=== PATIENT | male | born 1995 | race Caucasian/White ===

== ENCOUNTER 2016-09-18 03:22 | Inpatient (IN) | payer OTHER ==
[~2016-09-18] VITALS: Ht 182.9 cm; Wt 86.4 kg
[~2016-09-18 03:22] MED LIST: AUGMENTIN 875 M1 TAB PO; FIORICET 325 MG1 TAB PO; PROTONIX 40MG T40 MG PO; ZOFRAN ODT4 MG PO
--- NOTE | 2016-09-18 03:34 | NUR ---
PT BIBA FOR +SI. PT REPORTS THOUGHTS OF SI TONIGHT AND THEN WENT TO A BRIDGE TO JUMP OFF BEFORE BEING TALKED DOWN BY FRIENDS. ARRIVES CALM AND COOPERATIVE. PT DENIES HI OR ALCOHOL USE. ADMITS TO SMOKING MARIJUANA. PT HAS HX: BIPOLAR AND IMPULSE DISORDER, ADMITS TO FAILING IOP FROM NOT GOING AND HAS SINCE BEEN NONCOMPLIANT WITH MEDICATIONS. PT WANDED BY SECURITY ON ARRIVAL AND CHANGED INTO BLUE SCRUBS
--- NOTE | 2016-09-18 03:52 | NUR ---
AT BEDSIDE TO ROCÍO
--- NOTE | 2016-09-18 03:52 | NUR ---
URINE TRIO SENT TO LAB
--- NOTE | 2016-09-18 04:01 | ED PSYCHIATRIC COMPLAINT ---
History of Present Illness General Chief Complaint: Psychiatric Related Complaint Stated Complaint: BIBA FOR +SI Source: patient Exam Limitations: no limitations Vital Signs & Intake/Output Vital Signs & Intake/Output Vital Signs Date Time Temp Pulse Resp B/P B/P Pulse O2 O2 Flow FiO2 Mean Ox Delivery Rate 09/18 0926 98.8 60 18 129/69 96 Room Air 09/18 0729 98.1 61 18 122/71 99 Room Air 09/18 0621 97.8 58 16 119/54 98 Room Air 09/18 0414 Room Air 09/18 0324 97.6 74 20 159/89 97 Room Air Allergies Uncoded Allergies: SALMON (Intermediate, HIVES 06/03/15) Reconcile Medications Acetaminophen/Butalbital/Caf (Fioricet 325 MG-50 MG-40 MG) 1 TAB TAB 1-2 TAB PO Q6P PRN PAIN AMOXICILLIN/POTASSIUM CLAV (Augmentin 875-125 Tablet) 875 MG/125 MG TAB 1 TAB PO BID SINUSITIS Triage Note: PT BIBA FOR +SI. PT REPORTS THOUGHTS OF SI TONIGHT AND THEN WENT TO A BRIDGE TO JUMP OFF BEFORE BEING TALKED DOWN BY FRIENDS. ARRIVES CALM AND COOPERATIVE. PT DENIES HI OR ALCOHOL USE. ADMITS TO SMOKING MARIJUANA. PT HAS HX: BIPOLAR AND IMPULSE DISORDER, ADMITS TO FAILING IOP FROM NOT GOING AND HAS SINCE BEEN NONCOMPLIANT WITH MEDICATIONS. PT WANDED BY SECURITY ON ARRIVAL AND CHANGED INTO BLUE SCRUBS/ Triage Nurses Notes Reviewed? yes HPI: Patient presents for evaluation of bipolar disorder and suicide ideation. Patient feels he needs to get back on his medications. He was being seen at the IOP program but obtained a job and didn't quite complete the course. Because he was no longer being seen he was unable to continue his medications. He states recently he has been under increasing stress, in particular, relative to his girlfriend's children. Apparently DCF became involved because of his past psychiatric history. He states he has been feeling extremely guilty about it. Tonight he began having thoughts of suicide. He group chatted and the members of the group called 911 at his request. (NUHA KEITH,TOMMIE Gardiner) Past History Travel History Traveled to [place] past 21 day No Medical History Any Pertinent Medical History? 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 No (TOMMIE BREEN MD) Review of Systems Review of Systems Constitutional: Reports: no symptoms. EENTM: Reports: no symptoms. Respiratory: Reports: no symptoms. Cardiovascular: Reports: no symptoms. GI: Reports: no symptoms. Genitourinary: Reports: no symptoms. Musculoskeletal: Reports: no symptoms. Skin: Reports: no symptoms. Neurological/Psychological: Reports: see HPI. Hematologic/Endocrine: Reports: no symptoms. Immunologic/Allergic: Reports: no symptoms. All Other Systems: Reviewed and Negative (NUHA KEITH,TOMMIE Gardiner) Physical Exam Physical Exam General Appearance: SEE BELOW Neurological/Psychiatric: SEE BELOW Comments: General: Alert, calm, cooperative Head: Normocephalic, atraumatic Eyes: Normal inspection, no nystagmus, EOMI Ears: Normal inspection Nose: Normal inspection Throat: Moist mucosa Neck: Supple, no goiter Heart: Regular rate and rhythm, no murmurs rubs or gallops Lungs: Clear to auscultation bilaterally with good air entry Abdomen: Soft nontender nondistended, normal bowel sounds Chest: Nontender Extremities: Normal range of motion grossly, no tremors present, no cyanosis clubbing or edema of the upper extremities, multiple parallel scars of the left upper extremity (patient states they were self administered) Neurologic: cranial nerves II through XII grossly intact, speech clear, gait normal Psychiatric: No apparent delusions or hallucinations, no pressured speech or thought blocking SAD PERSONS Done? deferred to crisis (NUHA KEITH,TOMMIE Gardiner) Progress Differential Diagnosis: SUICIDE IDEATION, DEPRESSION, BIPOLAR DISORDER Plan of Care: Orders Procedure Date/time Status ETHANOL 09/19 407 Complete Continuous Observation Monitor 09/19 399 Active CBC WITHOUT DIFFERENTIAL 09/19 399 Complete BASIC METABOLIC PANEL 09/19 399 Complete ED CRISIS PSYCH CONSULT 09/19 399 Active URINE DRUGS OF ABUSE 09/18 034 Complete URINALYSIS 09/19 343 Complete Laboratory Tests 09/18/16 0408: Anion Gap 10, Estimated GFR > 60, BUN/Creatinine Ratio 14.0, Glucose 92, Calcium 9.5, CBC w Diff NO MAN DIFF REQ, RBC 5.04, MCV 86.2, MCH 29.4, RDW 13.0, MPV 7.4 , Gran % 68.6, Lymphocytes % 22.1, Monocytes % 7.4, Eosinophils % 1.5, Basophils % 0.4, Absolute Granulocytes 5.3, Absolute Lymphocytes 1.7, Absolute Monocytes 0.6, Absolute Eosinophils 0.1, Absolute Basophils 0, PUBS MCHC 34.1, Serum Alcohol < 10.0 09/18/16 0359: Serum Alcohol Cancelled 09/18/16 0346: Urine Opiates Screen < 100.00, Methadone Screen < 40, Barbiturate Screen < 60, Ur Phencyclidine Scrn < 6.00, Amphetamines Screen < 100, U Benzodiazepines Scrn < 85, Urine Cocaine Screen > 1000 H, Urine Cannabis Screen 54.50 H, Urine Color YEL, Urine Clarity CLEAR, Urine pH 6.5, Ur Specific [place] 1.015, Urine Protein NEG, Urine Ketones NEG, Urine Nitrite NEG, Urine Bilirubin NEG, Urine Urobilinogen 1.0, Ur Leukocyte Esterase NEG, Ur Microscopic EXAM NOT REQUIRED, Urine Hemoglobin NEG, Urine Glucose NEG Comments: 09/18/2016 7:48:18 AM patient signed out to 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 (NUHA KEITH,TOMMIE Gardiner) Comments: Patient has been seen and evaluated by a private duty lpn. PEC is being signed. Patient will be admitted. (ANTHONY KEITH,ROSAMARIA Ambrocio) Departure Departure Referrals: PATIENT HAS NO PRIMARY CARE DR (PCP/Family) Departure Forms: Customer Survey General Discharge Information (TOMMIE BREEN MD) Departure Disposition: STILL A PATIENT Condition: Guarded Clinical Impression Primary Impression: Suicidal ideations Psych Admission Note Psychiatric Admission: I have seen and evaluated VAZQUEZ YUEN. I have also reviewed all the pertinent lab results and diagnostic results. VAZQUEZ YUEN will be admitted to our inpatient Psychiatric unit for treatment and care. (ANTHONY KEITH,ROSAMARIA Ambrocio)
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
--- NOTE | 2016-09-18 04:11 | NUR ---
LABS SENT (1SST,1LAV)
[2016-09-18 04:18] LABS: ABSOLUTE BASOPHIL COUNT 0 /CUMM (0.0-0.2); ABSOLUTE EOSINOPHIL COUNT 0.1 /CUMM (0.0-0.7); ABSOLUTE GRANULOCYTE CT 5.3 /CUMM (1.4-6.5); ABSOLUTE LYMPH COUNT 1.7 /CUMM (1.2-3.4); ABSOLUTE MONOCYTE COUNT 0.6 /CUMM (0.10-0.60); BASOPHIL % 0.4 % (0.0-2.0); EOSINOPHIL % 1.5 % (0-5); GRANULOCYTE % 68.6 % (42.2-75.2); HEMATOCRIT 43.5 % (42-52); MEAN CORPUSCULAR HGB 29.4 PG (27.0-31.0); MEAN CORPUSCULAR HGB CONC 34.1 G/DL (33.0-37.0); MEAN CORPUSCULAR VOLUME 86.2 FL (80.0-94.0); MEAN PLATELET VOLUME 7.4 FL (7.4-10.4); PLATELET COUNT 296 /CUMM (130-400); RED BLOOD CELL CT 5.04 /CUMM (4.70-6.10); WHITE BLOOD CELL COUNT 7.7 /CUMM (4.8-10.8)
--- NOTE | 2016-09-18 06:24 | NUR ---
PT REMAINS AWAKE, REPORTS WAS UNABLE TO SLEEP. AWARE OF PLAN TO BE EVALUATED BY CRISIS THIS MORNING. PT IN AGREEMENT WITH PLAN. CALM AND COOPERATIVE. PT REPORTS "I KNOW I NEED HELP SO I DON'T FEEL THIS WAY." DENIES ANY OTHER NEEDS AT THIS TIME.
--- NOTE | 2016-09-18 08:00 | NUR ---
PT SLEEPING QUIETLY, NO COMPLAINTS AT THIS TIME, AWAITING CRISIS EVAL
--- NOTE | 2016-09-18 09:14 | ED PSYCH CRISIS CONSULTATION ---
Crisis Consult Basic Assessment Date of Consult: 09/18/16 Responsible Person/Accompanied By: Self Insurance Authorization: Insurance #1: Insurance name: [employer] C&A Phone number: Policy number: [id number] Group number: Authorization number: ED Provider: Patient's ED Provider: TOMMIE BREEN MD Primary Care Physician: Patient's PCP: PATIENT HAS NO PRIMARY CARE DR PCP's Phone Number: Current Psychiatrist: None currently. Most recent Claudia Maravilla DO, at [facility] Chief Complaint: Psychiatric Related Complaint Patient's Quote: "Can't say I was suicidal, I never sent a note." Present Illness: 21 M BIBA 09/18/16 @ 0334 with CC of suicidal ideation. Triage note mentions plan to jump off bridge. Utox positive for cocaine and cannabis. He has a history of suicide attempts. He had been under stress because his girlfriend's children are now with her parents, and the girlfriend had wanted to separate for a while. The patient lives with his GF, Isabella, who works nights here at the hospital. Early this morning, the patient reports feeling overwhelmed by events, and told Isabella at work that, "I'm just gonna tell you goodbye." Isabella reports that he told her he left a letter for her, but she had not been home to find it yet. Collateral interview with Isabella, the GF with whom he has been living: Isabella' two boys, 4 and 9, had been living with her and the patient. Isabella' ex-, now in long term, and his parents have been trying to get custody of the children, and threatened to call DCF. Isabella denies DCF is involved with the children, and they are currently living with her mother. She reports that she felt she was burdening the patient with the drama surrounding the children, and told the patient that they should separate for a time. The patient at some point turned his phone off, and stopped responding to text, after which she notified friends, who called minda. The friends found the patient in the [place] on [facility]. Isabella was present and supportive in the ED after she was finished with her work. Collateral interview with aDniel, father of the patient's friend, Abbey: He states that he lives in the house with the patient and Isabella, and denies that the patient mentioned a suicide plan, but they were worried about his intent last night. The patient denied writing a suicide note, and stated that he just went for a walk at 2AM. He offers an unclear story on what he said in phone calls and text, and denies planning to jump off a bridge. He states he ws found sitting on a bench in the park on [facility], where there is a ledge and bridge nearby. 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 Last heroin use was about a year ago by inhalation. He sporadically attends AA meetings, but has not sponsor. 08/08/10 - Previous suicide attempt by OD on meclizine; effected own rescue 07/22/10 - Suicide attempt by unknown number of unidentified pills; effected own rescue 08/11/14 - Suicide attempt in [place] by hanging (rope broke); effected own rescue 02/06/15 - Suicidal ideation with threat to hang himself 03/31/15 - Suicidal statement on Facebook; admitted to [facility] - [facility], followed by [facility], which he left one week before graduation, fearing his new job would not want him if he was in treatment. The patient had also followed with Dr. Maravilla, psychiatrist, at [facility] in [place], but had fallen out of treatment. He reports that he last saw her 1-1/2 months ago, but that office moved from the location in [place], where the patient was seen, last winter; he was unaware of this. Patient's Address: [address] [place] [address] Other Phone Number: Who Do You Live With? Friend (Lives with GF & her children) Family/Informants Interviewed: Girlfriend, Isabella, Allergies - Uncoded Allergies: SALMON (Intermediate, HIVES 06/03/15) Current Medications - Scheduled Medications AMOXICILLIN/POTASSIUM CLAV (Augmentin 875-125 Tablet) 875 MG/125 MG TAB 1 TAB PO BID SINUSITIS #20 TAB Prescribed by KEVIN HILLS PA-C on 06/03/15 Scheduled PRN Medications Acetaminophen/Butalbital/Caf (Fioricet 325 MG-50 MG-40 MG) 1 TAB TAB 1-2 TAB PO Q6P PRN PAIN #20 TAB Prescribed by KEVIN HILLS PA-C on 06/03/15 Laboratory Results: Laboratory Tests 09/18/16 0408: Anion Gap 10, Estimated GFR > 60, BUN/Creatinine Ratio 14.0, Glucose 92, Calcium 9.5, CBC w Diff NO MAN DIFF REQ, RBC 5.04, MCV 86.2, MCH 29.4, RDW 13.0, MPV 7.4 , Gran % 68.6, Lymphocytes % 22.1, Monocytes % 7.4, Eosinophils % 1.5, Basophils % 0.4, Absolute Granulocytes 5.3, Absolute Lymphocytes 1.7, Absolute Monocytes 0.6, Absolute Eosinophils 0.1, Absolute Basophils 0, PUBS MCHC 34.1, Serum Alcohol < 10.0 09/18/16 0359: Serum Alcohol Cancelled 09/18/16 0346: Urine Opiates Screen < 100.00, Methadone Screen < 40, Barbiturate Screen < 60, Ur Phencyclidine Scrn < 6.00, Amphetamines Screen < 100, U Benzodiazepines Scrn < 85, Urine Cocaine Screen > 1000 H, Urine Cannabis Screen 54.50 H, Urine Color YEL, Urine Clarity CLEAR, Urine pH 6.5, Ur Specific [place] 1.015, Urine Protein NEG, Urine Ketones NEG, Urine Nitrite NEG, Urine Bilirubin NEG, Urine Urobilinogen 1.0, Ur Leukocyte Esterase NEG, Ur Microscopic EXAM NOT REQUIRED, Urine Hemoglobin NEG, Urine Glucose NEG Past History Past Medical History Neurological: NONE EENT: NONE Cardiovascular: NONE Respiratory: NONE Gastrointestinal: NONE Hepatic: NONE Renal: NONE Musculoskeletal: NONE Psychiatric: bipolar disease, substance abuse, RECOVERING HEROIN ADDICT LAST USED 03/2015 Endocrine: NONE Blood Disorders: NONE Cancer(s): 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 Substance Abuse Treatment Substance Abuse Treatment Past Substance Abuse TX Yes Inpatient Treatment No Outpatient Treatment Yes Location of Treatment IOP Reason for Treatment Substance abuse and bipolar d/o Dates of Treatment 2016 Response to Treatment Improved Current Mental Status Mental Status Orientation: Person, Place, Situation Affect: WNL Speech: Evasive Neuro-vegetative: Anhedonia (Denies depression), Sleep Disturbance Appearance Appearance- Dress/Hygiene: Disheveled in hospital garb Behaviors Thought Process: Flight of Ideas, Circumstantial Thought Content: Grandiose Memory: Impaired Insight: Poor SI/HI Risk Assessment Past Suicidal Ideation/Attempts Yes Current Suicidal Ideation/Att No Past Homicidal Ideation/Att: Yes Current Homicidal Ideation/Attempts No Degree of Intent: Self Destructive/No , Thoughts/No Intent Danger To: Self Gravely Disabled: Lack of Insight, Poor Impulse Control, Poor Judgment Risk Factors: age (under 24/over 65), history of suicide atmpts, SA/MH hospitalized, substance abuse, poor impulse control, male, limited support Lethality Ratin PTSD Checklist PTSD Done? patient declined ED Management Sitter: Yes Restraints: No DSM5/PS Stressors/Medical Prob Diagnosis' (DSM 5, Stressors, Medical): F31.9 - Bipolar I, unspecified F14.20 - Cocaine use disorder F12.20 - Cannabis use disorder F11.20 - Heroin use disorder, in remission for one year, per patient Borderline traits, R/O borderline d/o Current GAF: 28 Departure Disposition Psych Medical Clearance Date: 09/18/16 Medically Cleared at: 0810 Time Started: 0810 Time Ended: 0840 Psychiatrist Consulted: Keturah Jiang MD Date Disposition Established: 09/18/16 Time Disposition Established: 929 Plan for Disposition - Modality: Inpatient Psychiatry Facility: [facility] Rationale for Disposition: the patient made suicidal statements by phone to his Chanel GRACE. He has a history of suicide attempts, with [facility]. The patient denies making suicidal statements, contrary to report by his Chanel GRACE. Type of IP Admission: PEC Additional Instructions: The girlfriend, Isabella, promises to bring in the letter the patient told her he left at home, if she finds it. The patient denied leaving a note. Referrals PATIENT HAS NO PRIMARY CARE DR (PCP/Family)
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
--- NOTE | 2016-09-18 11:03 | NUR ---
PER CRISIS PT IS TO BE ADMITTED FOR +SI, REQUESTING ATIVAN AND NICOTINE PATCH. AWARE.
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
--- NOTE | 2016-09-18 11:51 | NUR ---
PT MEDICATED WITH ATIVAN AND NICOTINE PATCH PER EMAR, FAMILY MEMBERS AT BEDSIDE, PT STATING HE IS UPSET HE HAS TO STAY BUT UNDERSTANDS AND UNDERSTANDS THE PROCESS
--- NOTE | 2016-09-18 12:20 | NUR ---
Care of patient assumed. Pt calm and waiting for placement. Offers no complaints. Girlfriend at the bedside. Will continue to monitor
[2016-09-18] MEDS ORDERED: ARIPIPRAZOLE5 M1 PO (12:34)
[2016-09-18] MEDS ORDERED: GABAPENTIN400 M2 PO (12:34)
--- NOTE | 2016-09-18 13:38 | NUR ---
REPORT GIVEN, WAITING FOR TRANSPORT.
--- NOTE | 2016-09-18 15:17 | Cons- Medical ---
General Information and HPI Consulting Request Date of Consult: 09/18/16 Requested By: RENATA MORRIS MD Reason for Consult: Medical H & P Source of Information: patient, old records Exam Limitations: no limitations History of Present Illness: 21 year old male with active polysubstance use including cocaine and cannabis use here with depressive c/o and suicidality. he denies any medical problems. 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 He denies chest pain, cough, sputum he denies any nausea, vomiting, diarrhea and any other complaints. He says that he's been free of heroin but snorted cocaine a few days ago. He is also still actively smoking cigarettes. Allergies/Medications Allergies: Coded Allergies: Fish Containing Products (Intermediate, SALMON -> HIVES 09/18/16) Home Med List: Aripiprazole 5 MG TABLET 1 TAB PO DAILY bipolar (Reported) Gabapentin 400 MG CAPSULE 1 CAP PO TID anxiety (Reported) Current Medications: Current Medications Sig/Isiah Start time Last Medication Dose Route Stop Time Status Admin Lorazepam 0 .STK-MED ONE 09/18 1137 DC PO Lorazepam 2 MG ONCE ONE 09/18 1130 DC 09/18 PO 09/18 1131 1135 Nicotine 0 .STK-MED ONE 09/18 1137 DC TOP Nicotine 21 MG ONCE ONE 09/18 1130 DC 09/18 TOP 09/18 1131 1135 Nicotine 2 MG Q2P PRN 09/18 1130 AC PO Review of Systems Review of Systems Constitutional: Denies: no symptoms, chills, diaphoresis, fever. Cardiovascular: Denies: no symptoms, chest pain, edema. Respiratory: Denies: no symptoms, cough, hemoptysis, orthopnea. GI: Denies: no symptoms, abdominal pain, constipation, diarrhea. 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 Home Who Do You Live With? spouse (he lives with his fianc) Smoking Status: Current Everyday Smoker ETOH Use: denies use Illicit Drug Use: marijuana Other Social History: Family history is negative for any cancer, diabetes stroke or heart disease. Functional Ability ADLs Independent: dressing, eating, toileting, bathing. IADLs Independent: shopping, housework, finances. Exam & Diagnostic Data Last 24 Hrs of Vital Signs/I&O Vital Signs Date Time Temp Pulse Resp B/P B/P Pulse O2 O2 Flow FiO2 Mean Ox Delivery Rate 09/18 1158 98.3 61 18 114/53 94 Room Air 09/18 0926 98.8 60 18 129/69 96 Room Air 09/18 0729 98.1 61 18 122/71 99 Room Air 09/18 0621 97.8 58 16 119/54 98 Room Air 09/18 0414 Room Air 09/18 0324 97.6 74 20 159/89 97 Room Air Intake & Output 09/18 1600 09/18 0800 09/18 0000 Intake Total Output Total 80 Balance -80 Output, Urine 80 Patient 190 lb 145 lb Weight Weight Estimated Measurement Method Physical Exam General Appearance: well developed/nourished, no apparent distress, alert, awake Head: atraumatic, normal appearance Ears, Nose, Throat: normal pharynx, normal ENT inspection Neck: supple, full range of motion Respiratory: normal breath sounds, chest non-tender, no respiratory distress Cardiovascular: regular rate/rhythm Gastrointestinal: normal bowel sounds, soft, non-tender, no organomegaly Back: normal inspection, normal range of motion Neurologic/Psych: no motor/sensory deficits, awake, alert, oriented x 3, normal gait Other Physical Findings: Cranial nerves 3-12 are intact, no motor or sensory deficit. He does have a tattoo on his skin. Last 24 Hrs of Labs/Ian: Laboratory Tests 09/18/16 0408: Anion Gap 10, Estimated GFR > 60, BUN/Creatinine Ratio 14.0, Glucose 92, Calcium 9.5, CBC w Diff NO MAN DIFF REQ, RBC 5.04, MCV 86.2, MCH 29.4, RDW 13.0, MPV 7.4 , Gran % 68.6, Lymphocytes % 22.1, Monocytes % 7.4, Eosinophils % 1.5, Basophils % 0.4, Absolute Granulocytes 5.3, Absolute Lymphocytes 1.7, Absolute Monocytes 0.6, Absolute Eosinophils 0.1, Absolute Basophils 0, PUBS MCHC 34.1, Serum Alcohol < 10.0 09/18/16 0359: Serum Alcohol Cancelled 09/18/16 0346: Urine Opiates Screen < 100.00, Methadone Screen < 40, Barbiturate Screen < 60, Ur Phencyclidine Scrn < 6.00, Amphetamines Screen < 100, U Benzodiazepines Scrn < 85, Urine Cocaine Screen > 1000 H, Urine Cannabis Screen 54.50 H, Urine Color YEL, Urine Clarity CLEAR, Urine pH 6.5, Ur Specific [place] 1.015, Urine Protein NEG, Urine Ketones NEG, Urine Nitrite NEG, Urine Bilirubin NEG, Urine Urobilinogen 1.0, Ur Leukocyte Esterase NEG, Ur Microscopic EXAM NOT REQUIRED, Urine Hemoglobin NEG, Urine Glucose NEG Assessment/Plan Assessment/Plan 21-year-old male with past medical history of opiate use now with active marijuana, cocaine and tobacco use here with depressive symptoms and suicidality. Treatment as per psych. I offered him HIV and hepatitis testing which he agreed to. I also reinforced with him the need to follow-up as an outpatient with the PCP at [address] [place] [address] in [place]. Problem List: 1. Major depression 2. Suicidal ideation 3. Cocaine use Consult Acknowledgment - Thank you for your consult request.
[2016-09-18 15:36] VITALS: BP 131/70
--- NOTE | 2016-09-18 17:26 | NUR ---
PT ADMITTED TO [facility], COOPERATIVE, CALM, COMPLIANT AND MOTIVATED FOR TREATMENT AND OPEN TO FEEDBACK THE TEAM HAS. MOOD IS STABLE WITH FULL RANGE AFFECT. RECALLS EVENTS LEADING UP TO ADMISSION POOR COPING AND RECOGNIZES SHOULD BE TAKING MEDICATIONS (HASN'T IN 6+ MONTHS), WANTS TO FEEL AND BE BETTER. PT IS PLEASANT AND HAS NO ISSUES OR CONCERNS. WHEN ASKED DIRECTLY DENIES SI/HI/HALLUCINATIONS AND FEELS COMFORTABLE AND SAFE ON UNIT WITH SOUTH STAFF. MEDS RECONCILED AND ALLERGIES CONFIRMED, PT IS THUS FAR APPROPRIATE AND ON THE UNIT OR LAYING IN BED. SKIN THAT IS VISIBLE IS CLEAN, DRY AND INTACT, DOES HAVE SEVERAL RANDOM SELF INFLICTED SCARS (ALL HEALDED) ON LEFT FOREARM & DENIES ANY OTHER ALTERATION TO SKIN THAT ISN'T VISIBLE. DR. AWAN NOTIFIED FOR H&P TODAY @ 8921.
--- NOTE | 2016-09-18 18:11 | NUR ---
PT IS CALM, COOPERATIVE WITH STAFF AND PEERS, AND COMPLIANT WITH UNIT RULES. BOTH IN AND OUT OF MILIEU, WITH LIMITED INTERACTION WITH PEERS. MOOD IS STABLE, AFFECT APPEARS EUTHMYIC TO FULL RANGE, COMMUNICATION IS ORGANIZED AND APPEARS NORMAL IN ALL RESPECTS, AND APPETITE IS NORMAL. PT DENIES SI AT THIS TIME.
[2016-09-18 19:50] VITALS: BP 136/73
--- NOTE | 2016-09-18 21:05 | CPS MD/APRN INITIAL ASSE PSYCH ---
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 The ambulance was called by the girlfriend as a result of the patient's suicidal statements. The patient wrote a suicide letter and told the girlfriend maylin then turned his phone off and left the house. The girlfriend was worried given the patient's past history of suicide attempts, she called the police, the patient was found sitting in his car close to a bridge. He allegedly stated that his intent was to jump off a bridge. While he was in the emergency room he denied any suicidal ideation, he minimized the incident leading to his being brought in. The patient has been hospitalized in [facility] last year in March. We reviewed the discharge summaries and the notes from the previous hospitalizations. He followed up with [facility] but left before graduating due to the fact that he found a job. Patient stated that after he left [facility] he was seeing , psychiatrist and continued th psychiatric medication for a short period of time. He relapsed and soon after relapsing he stopped going to his psychiatrist, stopped going to 12 step meetings and stopped his psychiatric medications. The decompensation was gradual. He now reached the point where he felt so overwhelmed by the events that he wanted to kill himself and was brought to the ED The patient's medication from the hospitalization in 2015 has been reviewed , the patient stated that it helped him. Chief Complaint: "I need to be here but it kills me that I can't get in and out as I please"-adds , in the same breath, that of course it doesn't kill him, that was a joke Reaction to Hospitalization: voluntary History of Present Illness Onset of Illness: see above Circumstances Leading to Admission: see above Problem(s) Justifying Need for Admission: see above Past Psychiatric History Past Diagnosis(es)- if any: see above Past Precipitating Factors- if any: see above - Include inpatient and outpatient treatment Treatment History: see above History of Suicide Attempts or Gestures see above Substance Abuse History: Opioid use disorder by hx.,in remission Cocaine use disorder Cannabis use disorder Allergies: Coded Allergies: Fish Containing Products (Intermediate, SALMON -> HIVES 09/18/16) Home Med List: none - Include any medical condition(s) that may - impact the patient's recovery/remission Past Medical History: denies Past History Medical History Neurological: NONE EENT: NONE Cardiovascular: NONE Respiratory: NONE Gastrointestinal: NONE Hepatic: NONE Renal: NONE Musculoskeletal: NONE Psychiatric: bipolar disease, substance abuse, RECOVERING HEROIN ADDICT LAST USED 03/2015 Endocrine: NONE Blood Disorders: NONE Cancer(s): NONE LASTEX OPERATOR/Reproductive: NONE History of MRSA: No History of VRE: No History of CDIFF: No Isolation History: Standard Surgical History Surgical History: none Psychiatric Family/Social Hx Family History Psychiatric Illness: none known Substance Use: none known Suicides: none known Other Family History: non-contributory Social History Living Situation: see above Significant Relationships (family/friends): see above Education: did not graduate HS Vocation/Occupation: see above Legal: see above Healthly Behaviors Screening Tobacco Screening Tobacco Use from ED Docu: Current Daily Use Daily Tobacco Use Amount/Type: => 5 Cigarettes daily - If tobacco counseling indicated - the following topics are required. - #1 Recognizing dangerous situations. - #2 Coping Skills. - #3 Basic information about quitting. Status of Tobacco Cessation Counseling: #1, #2 AND #3 Completed Cessation Med Status Nicotine Patch Ordered Alcohol Screening - ETOH screen POS if BAL >=80 or Audit-C>= M4/F3 Audit-C Score from Diag Assess: 0 Blood Alcohol Level: Laboratory Tests 09/18 09/18 0359 0408 Toxicology Serum Alcohol (<10 MG/DL) Cancelled < 10.0 Alcohol Use Screening Results: Neg per Audit C &/or BAL - If ETOH counseling indicated - the following topics are required. - #1 Express concern about the patient's - drinking at unhealthy levels, include informing - of national norms for moderate drinking: - men <= 14 drinks/week, max 4 drinks/occasion - women <= 7 drinks/week, max 3 drinks/occasion - #2 Providing feedback, including linking alcohol to - negative physical effects (liver injury, hypertension) - negative emotional effects (relationship problems and - depression) - negative occupational consequences (reduced work - performance) - #3 Advising the patient to abstain from alcohol or - to drink below national norms for moderate drinking - (as listed above). Status of ETOH Use Counseling: N/A B/C NO ETOH Use Metabolic Screening - Screen if on a Neuroleptic Medication - Metabolic screening should include: - Blood Pressure, BMI, Glucose or Hgb A1c, & a - Lipid profile from within the past 365 days. Metabolic Screening () Not Applicable, patient not on a neuroleptic. OR ([x]) Patient on a neuroleptic(s) . Enter below results for Glucose or Hemoglobin A1C, Lab Glucose 92 mg/dL 09/18/16 0408 and lipid panel if obtained during the last 365 days. lipid panel ordered BMI: 25.000 Blood Pressure: 130/75 Laboratory Results (If applicable): Lab Anion Gap 10 09/18/16 0408 BUN 14 mg/dL 09/18/16 0408 BUN/Creatinine Ratio 14.0 % 09/18/16 0408 Calcium 9.5 mg/dL 09/18/16 0408 Carbon Dioxide 25 mmol/L 09/18/16 0408 Chloride 105 mmol/L 09/18/16 0408 Creatinine 1.0 mg/dL 09/18/16 0408 Estimated GFR > 60 ml/min 09/18/16 0408 Glucose 92 mg/dL 09/18/16 0408 Potassium 3.7 mmol/L 09/18/16 0408 Sodium 140 mmol/L 09/18/16 0408 Absolute Basophils 0 /CUMM 09/18/16 0408 Absolute Eosinophils 0.1 /CUMM 09/18/16 0408 Absolute Granulocytes 5.3 /CUMM 09/18/16 0408 Absolute Lymphocytes 1.7 /CUMM 09/18/16 0408 Absolute Monocytes 0.6 /CUMM 09/18/16 0408 Basophils % 0.4 % 09/18/16 0408 CBC w Diff NO MAN DIFF REQ 09/18/16 0408 Eosinophils % 1.5 % 09/18/16 0408 Gran % 68.6 % 09/18/16 0408 Hct 43.5 % 09/18/16 0408 Hgb 14.8 G/DL 09/18/16 0408 Lymphocytes % 22.1 % 09/18/16 0408 MCH 29.4 PG 09/18/16 0408 MCV 86.2 FL 09/18/16 0408 MPV 7.4 FL 09/18/16 0408 Monocytes % 7.4 % 09/18/16 040 PUBS MCHC 34.1 G/DL 09/18/16 0408 Plt Count 296 /CUMM 09/18/16 0408 RBC 5.04 /CUMM 09/18/16 0408 RDW 13.0 % 09/18/16 0408 WBC 7.7 /CUMM 09/18/16 0408 Amphetamines Screen < 100 NG/ML 09/18/16 0346 Barbiturate Screen < 60 NG/ML 09/18/16 0346 Methadone Screen < 40 NG/ML 09/18/16 0346 Serum Alcohol < 10.0 MG/DL 09/18/16 0408 U Benzodiazepines Scrn < 85 NG/ML 09/18/16 0346 Ur Phencyclidine Scrn < 6.00 NG/ML 09/18/16 0346 Urine Cannabis Screen 54.50 NG/ML H 09/18/16 0346 Urine Cocaine Screen > 1000 NG/ML H 09/18/166 Urine Opiates Screen < 100.00 NG/ML 09/18/166 Exam and Plan Mental Status Examination Ambulation Status: Ambulates without assistance. He presents as a tall, well-built, well-nourished male. He is laying down in his bed, he is dressed in hospital issued blue paper scrubs. 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 His speech is well articulated, goal directed, average in rate, volume and tone. He describes mood as "mixed, up-and-down". His affect is within normal limits. It is of note that the patient received medication which helped him "calm down" prior to the interview. The patient adamantly denies suicidal ideation, he states, and also believes, that he doesn't want to kill himself or hurt anybody else. He denies auditory/visual hallucinations, he does not report any delusional ideation and none was elicited during the interview. He has good insight, states that he is motivated for treatment. Is cognitively intact, intact memory, attention and concentration,average intellectual functioning. Diagnosis: Bipolar disorder, current episode mixed, severe, with suicidal ideation Cocaine use disorder Cannabis use disorder Opioid use disorder by history, patient clean and sober for the year prior to this admission. Stressors include financial difficulties, relationship difficulties, poor social support, noncompliance with psychiatric medications. He does not have any medical problems. The current GAF is 35% Patient agreed to inpatient level of care. He will participate in multimodal treatment on the unit, he will have medication management, group and individual psychotherapy all geared towards successful discharge with an appropriate discharge plan. Patient is willing to go to the dual diagnosis IOP at [facility] as a follow-up, stating "I really want to do it right this time. I need to be straight, get a job, and be there for my girlfriend who needs me". Appearance: see above Attitude towards examiner: see above Psychomotor activity: see above Behavior: see above Quality of speech: see above Affect: see above Mood: see above Suicidal Ideation: see above Homicidal Ideation: see above Hallucinations: see above Paranoid/Delusional Material: see above Difficulties with thought organization: see above Insight: see above Judgment: see above Orientation: see above Cognition: see above Memory Function: see above Estimate of intellectual functioning: see above Assets/Strengths Patient Identified Assets/Strengths: see above Impression/Plan Impression and Plan: As noted - Include all active medical diagnosis that require tx DSM 5 Diagnosis(es): as noted - Initial Tx Plan for Active Psych & Medical Conditions Treatment Plan: as noted above - Factors that would help patient function - in a less restrictive setting. Factors: -absence of SI -appropriate f/u -absence of racing thoughts, good sleep
[2016-09-19 07:57] VITALS: BP 130/75
--- NOTE | 2016-09-19 11:35 | NUR ---
DR. BELTRAN RENOTIFIED FOR H&P.
[2016-09-19 12:04] VITALS: BP 138/72
--- NOTE | 2016-09-19 12:36 | NUR ---
PT IS STABLE WITH FULL RANGE OF AFFECT, BRIGHT. PT HAS BEEN OUT IN THE COMMUNITY AND INTERACTING APPROPRIATELY WITH PEERS/STAFF MEMBERS. PT IS SEEN LAUGHING AND JOKING WITH PEERS. PT REQUESTED TO PLAY SOLIS BAG TOSS AFTER LUNCH AND WILL BE ABLE TO DO SO. ATTENDING GROUPS THIS AM. VS ARE STABLE AND DENIES ANY SI/HI TO THIS MHW.
--- NOTE | 2016-09-19 14:51 | CP SOUTH PROGRESS NOTE PSYCH ---
Psych (Inpt) Progress Note Progress Note Include the following elements, when applicable: Involvement in the active treatment of the patient with behavioral observations of the patient and the patient's response to the treatment. Review of the ongoing treatment process in the context of the treatment plan. Indication of how multi-disciplinary staff members are carrying out the treatment plan. Plans for future interventions and recommendations for revision of the treatment plan. Liaison with other physicians/providers. Progress Note: PSYCHIATRIST NOTE, 09/19/2016: I discussed this patient's presentation and progress since admission with the unit charge nursing, read his d/c summary from 03/2015, admission assessment and initial M.D. note and met with patient myself in individual session. 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 He had been restarted on 1,000mg/day by Dr. Jiang on admission and agreed to increase to the previously effective dose with initial valproic acid level scheduled for 09/22/2016. Though patient described and night report confirmed he had sleep well last night he continues to be mildly pressured though not in any way incoherent or illogical; in fact, his current judgment appears to be good ( and insight improving). Patient agreed to doubling daily dose of Abilify (to 5mg 2x/day) at least until the valproic acid level is in therapeutic range. Patient has been living with his girlfriend; they suffered a tragedy just 3 weeks ago when g/f had a miscarriage; we should set up a meeting with the couple prior to discharge. Patient is willing to follow up in the [place] dual focus [facility]; since he is not working at the present time he could attend either daytime or evening hours. Patient noted having some difficulties getting along with his mother (who works for [employer]); he thinks this is contributed to by them both having similar personalities and posits that mother may have a bipolar spectrum disorder as well; patient does not appear to harbor any ill-will towards mother and would like to have a better, more positive relationship with her. Patient acknowedged that the "last straw" in his recent decompensation came when he picked up crack cocaine; 7 previous urine tox. 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
[2016-09-19 15:51] VITALS: BP 138/73
--- NOTE | 2016-09-19 18:27 | NUR ---
PT IS COMPLIANT AND COOPERATIVE WITH UNIT RULES. PT IS OUT IN THE COMMUNITY INTERACTING WELL WITH STAFF AND PEERS. PT HAD A VISIR FROM SOME FRIENDS AND FAMILY TODAY. PT MOOD IS STABLE WTIH A FULL RANGE AFFECT. PT DID NOT ATTEND GROUPS TODAY. PT DENIES SI THOUGHTS.
[2016-09-19 19:44] VITALS: BP 133/98
--- NOTE | 2016-09-20 06:15 | NUR ---
PATIENT UP TO BATHROOM ONCE, AWAKE IN BED EARLY AT 0530, OTHERWISE SLEPT ALL NIGHT.
[2016-09-20 08:06] VITALS: BP 137/66
--- NOTE | 2016-09-20 11:40 | NUR ---
PT HAS BEEN VISIBLE IN THE [facility] TODAY. HIS GOAL WAS TO MAKE GROUPS, STAY AWAKE AND STAY OUT OF HIS ROOM. PT HAS BEEN GOING TO GROUPS, AND ACTIVELY PARTICIPATING. HE HAS BEEN PLEASANT AND COOPERATIVE WITH POSITIVE INTERACTIONS WITH PEERS AND STAFF. HE DENIES THOUGHTS OF HURTING HIMSELF WHEN ASKED.
[2016-09-20 12:18] VITALS: BP 146/67
[2016-09-20 16:14] VITALS: BP 138/77
--- NOTE | 2016-09-20 18:03 | NUR ---
PT IS CALM, COOPERATIVE WITH STAFF AND PEERS, AND COMPLIANT WITH UNIT RULES. OFTEN IN MILIEU, INTERACTING WITH OTHERS. MOOD IS STABLE, AFFECT APPEARS EUTHYMIC TO FULL RANGE, COMMUNICATION IS ORGANIZED AND APPEARS NORMAL IN ALL RESPECTS, AND APPETITE IS NORMAL. PT DENIES SI AT THIS TIME.
--- NOTE | 2016-09-20 18:16 | SOCIAL WORKER PROG NOTE PSYCH ---
Social Work Progress Note Progress Note 5:31pm This internal communications writer met with pt. Pt discussed stressors that led to current hospitalization. Pt stated that his girlfriend had a miscarraige about 1-2 weeks ago. He also reported that he and his girlfriend had been informed that his girlfriend's ex-boyfriend (father of her children) called [facility] for unknown reasons. He stated that he has been unable to confirm that this occurred and has not heard from [facility]. Pt stated that he had also stopped taking his medications (about 5 months ago). He stated that he was attending an IOP at in 2016, but did not complete it due to a work schedule conflict. This resulted in discontinuing the medications due to not having a prescriber. He stated that he later began treatment with Dr. Maravilla, however, stopped this treatment ( medication management) about 6 months ago. Pt stated that he was feeling overhwhelmed by stressors and not taking medications and wanted to give up. He stated that he informed family and friends of this and then left his house ( around midnight) resulting in his friends looking for him with the police. He denied having SI at that time, however, upon speaking with the police he stated that he wanted to go to the hospital resulting in current admission. Pt identified his goal for this admission as "getting back on my meds." Pt reported daily MJ use with last use as about 1 week ago. He stated that he also used Cocaine recently and reported rare use with use once in the last 2 years. He reported minimal ETOH use (about twice per month, a couple of beers). Pt stated that he used Heroin in the past with last use in March 2015. Pt shared that he engaged in self-injury: "I used to cut to deal with the Heroin withdrawals." He denied any self injury since March 2015. Pt stated that he feels safe on the unit and would inform staff if feeling unsafe or other concerns arise. He was active and spontaneous during this conversation and appeared motivated to identify treatment post-discharge that he could attend. He expressed interest in a Dual IOP. Pt inquired about scheduling a family session with his girlfriend and close friend. He signed THAD's for both. Pt's girlfriend does not have a working phone at this time and pt's does not know his friend's phone number. This internal communications writer will speak with treatment team regarding scheduling a family meeting. Pt 's girlfriend plans to visit the pt tomorrow and will follow up regarding a family meeting at that time.
--- NOTE | 2016-09-20 19:31 | CP SOUTH PROGRESS NOTE PSYCH ---
Psych (Inpt) Progress Note Progress Note Include the following elements, when applicable: Involvement in the active treatment of the patient with behavioral observations of the patient and the patient's response to the treatment. Review of the ongoing treatment process in the context of the treatment plan. Indication of how multi-disciplinary staff members are carrying out the treatment plan. Plans for future interventions and recommendations for revision of the treatment plan. Liaison with other physicians/providers. Progress Note: PSYCHIATRIST NOTE, 09/20/2016: I discussed this patient's progress to date, current mental status, treatment and discharge planning with staff team today in the daily morning ITTM and also interviewed him again myself in individual session. Patient was in good spirits, perhaps a little pressured but not elated or hypomanic, reported good sleep the night before and that he and his social media developer were planning a meeting with he and his girfriend for tomorrow or the next day. He denied any side effects on current dose of Depakote ER, 1,250mg/day; I discussed with him increasing dose by another 250mg daily to better assure a therapeutic serum valproic acid concentration and in view of the fact that Depakote see his primary mood therapy at this time; following further description of R/B/SE, patient agreed to the increase, beginning this evening; initial serum valproic acid level will be drawn in AM 09/22/2016.
[2016-09-20 19:50] VITALS: BP 146/80
[2016-09-21 07:54] VITALS: BP 127/73
[2016-09-21 12:17] VITALS: BP 138/74
--- NOTE | 2016-09-21 13:50 | NUR ---
PT HAS BEEN IN THE [facility] MOST OF THE DAY. HE ATTENDED A FEW GROUPS THROUGHOUT THE DAY, AND HAS BEEN INTERACTING WITH PEERS. PT IS PLEASANT AND COOPERATIVE WITH STAFF DIRECTION. HE DENIES THOUGHTS TO HURT HIMSELF WHEN ASKED.
--- NOTE | 2016-09-21 14:39 | CP SOUTH PROGRESS NOTE PSYCH ---
Psych (Inpt) Progress Note Progress Note Include the following elements, when applicable: Involvement in the active treatment of the patient with behavioral observations of the patient and the patient's response to the treatment. Review of the ongoing treatment process in the context of the treatment plan. Indication of how multi-disciplinary staff members are carrying out the treatment plan. Plans for future interventions and recommendations for revision of the treatment plan. Liaison with other physicians/providers. Progress Note: PSYCHIATRIST NOTE (COUPLE'S/FAMILY MEETING), 09/21/2016: I discussed this patient's progress to date, current mental status, treatment and discharge planning with staff team today in the daily morning SINCERE and Shawna Brunson LCSW, and I met with patient and his girlfriend (with whom he is living) and "younger brother" (actually not a relative, apparently) in a family session. Both g/f and brother expressed very appropriate concern for patient's safety, welfare and future life course. They were both supportive of treatment and the aftercare plan; g/f asserted that patient was welcome back in her home as soon as he is discharged from [facility]. Patient acknowledged being impulsive and making bad decisions in the past but very much wants to get himself on the right track both so he doesn't let others down and in order to give himself a chance at success in life. Patient reported feeling better on the higher dose of Depakote ER already; a serum valproic acid level will be drawn tomorrow AM, 09/22/2016. Patient continues agreeable to attending the [facility] and an intake appointment, ideally for tomorrow, will be scheduled. Patient's g/f noted significant improvement in patient's mood since admission and coupled this with his "being back on his medication." Patient has not required any PRN's of Abilify, trazodone or Neurontin and reports sleeping well last night. For further details of today's meeting, see Boy's progress note of this date.
--- NOTE | 2016-09-21 14:52 | SOCIAL WORKER PROG NOTE PSYCH ---
Social Work Progress Note Progress Note 2:10pm Dr. Chavez, this Sw, pt's girlfriend (Chanel) and his "brother"/friend (Daniel) met for a family meeting. Chanel and Daniel did not identify any concerns that they have about the pt or about him returning home. Chanel added, "he's perfectly fine if he takes his meds." Chanel and Daniel reported improvements they have noticed in the pt's mood, as did the pt which he attributed to being on medication again. Managing barriers to treatment were explored and discussed. He stated that he left [facility] early, before completion, in the past due to a work schedule conflict. He acknowledged the importance of making treatment/health his primary concern and focusing on IOP rather than work at this time. Pt's girlfriend and friend appeared supportive of this. Pt discussed interest in "finding" balance in his life in order to support his recovery. Pt was encouraged to return to AA/12 Step meetings and was informed that he could obtain a meeting schedule from this unit. Pt stated that he has one or two books at home in which he has marked meetings that he can attend. Pt was in agreement with attending an intake at [facility]; appointment date and time are pending. As discussed with the treatment team this morning, pt signed a voluntary admission form which has been placed in the front of his chart.
[2016-09-21 16:20] VITALS: BP 153/72
[2016-09-21 20:09] VITALS: BP 141/66
--- NOTE | 2016-09-21 20:37 | NUR ---
PT IS VISIBLE ON UNIT, SOCIALIZING WITH PEERS AND VISITING WITH GIRLFRIEND AND FRIENDS IN KITCHEN. COOPERATIVE WITH STAFF. PT HAS AN IRRITABLE EDGE WITH STAFF AT TIMES BUT IS CALM AND COMPLIANT. NO COMPLAINTS OR SI REPORTED. PT HAS A STABLE MOOD AND CONSTRICTED AFFECT.
--- NOTE | 2016-09-22 04:21 | NUR ---
SLEPT WELL WOKE DUE TO THE SNORING HEN PT. TOOK OFF MACHINE GAVE HIM EAR PLUGS.
--- NOTE | 2016-09-22 07:55 | NUR ---
PT IS SCHEDULED FOR DISCHARGE TODAY TO [facility]. HE REPORTS AND DEMONSTRATES IMPROVEMENT IN HIS MOOD AND ABILITY TO FUNCTION. HE DENIES ANY THOUGHTS OF SUICIDE OR SELF HARM AT THIS TIME. HE AGREES TO FOLLOW UP WITH [facility]. HE IS LOOKING FORWARD TO GOING HOME. PT VERBLIAZES A GOOD UNDERSTANDING OF HIS MED REGIME AND TREATMDNT PLAN. HE IS GIVEN EDUCATION R/T MANAGING HIS MOOD DISORDER AND ON SUICIDE PREVENTION
[2016-09-22 08:15] VITALS: BP 121/69
--- NOTE | 2016-09-22 10:26 | SOCIAL WORKER PROG NOTE PSYCH ---
See Addendum Social Work Progress Note Progress Note Pt is scheduled for IOP intake today, , at 12:45pm. This gag writer met with pt to discuss discharge. Pt appeared motivated to follow through with IOP intake assessment IOP for 09/22/16 at 12:45pm. He discussed plans to focus on his treatment/recovery/sobriety through IOP. Pt was also encouraged to attend AA meetings and was provided with a meeting book. He agreed to highlight meetings that he could attend prior to leaving [facility] today. Pt discussed strategies to utilize support from family/friends as well as [facility]. He agreed to communicate with IOP regarding barriers that he might have or may arise that could potentially impact his treatment. (Pt had prematurely discharged from [facility] in the past due to a work schedule conflict). Pt denied SI/ HI/AH/VH. He stated that he would review any medication questions or concerns with Dr. Chavez today.
[2016-09-22] MEDS ORDERED: NICOTINE PATCH1 EAC3 TOP (10:31)
[2016-09-22] MEDS ORDERED: DIVALPROEX SOD500 M2 PO (10:31)
[2016-09-22] MEDS ORDERED: ABILIFY10 M1 PO (10:31)
--- NOTE | 2016-09-22 12:36 | CP SOUTH PROGRESS NOTE PSYCH ---
Psych (Inpt) Progress Note Progress Note Include the following elements, when applicable: Involvement in the active treatment of the patient with behavioral observations of the patient and the patient's response to the treatment. Review of the ongoing treatment process in the context of the treatment plan. Indication of how multi-disciplinary staff members are carrying out the treatment plan. Plans for future interventions and recommendations for revision of the treatment plan. Liaison with other physicians/providers. Progress Note: PSYCHIATRIST NOTE (DISCHARGE), 09/22/2016: I discussed this patient's progress to date, current mental status, treatment and discharge plans with staff team today in the daily morning ITTM and also met with him again myself in individual session prior to discharging him directly to intake with the [facility] today at 12:45pm. Patient has also been repeatedly encouraged to regularly attend local A.A./N.A. meetings and acquire and communicate frequently with a sponsor. We discussed smoking cessation once again; I stress in particular the short-term negative effects of smoking, production of carbon monoxide/ carboxyhemaglobin which robs the body's cells of needed energy; patient wants to pursue a physically active profession and energy/stamina is particularly important to him; patient agreed to continue to utilize the 21mg nicotine patch daily and was given an appointment card for the next [place] [facility] scheduled to meet on 09/27/2016 at 4pm, facilitated by Katya Soares LCSW. Patient is positive about attending [facility], upbeat, cheerful, smiling, euthymic, showing no evidence of suicidal or homicidal ideation, plans, intent or impulses and well aware of his own safety plan should he ever in future come to believe himself at acute risk of self-harm or harming others. Serum valproic acid level this morning was optimal at 89.7mcg/ml and Depakote ER currently well tolerated at a dose of 1,500mg/day, a bit higher than patient had been on OIL SCOUT. Dose of Abilify did not require adjustment during this admission. Patient requested to remain on the regular doses of Neurontin, telling me that they do seem to help him with low level anxiety without daytime sedation. (for complete listing of all medications at the time of discharge, dosages, scheduling, amount prescribed, indications, see the "Discharge Medications" section of the discharge summary for this admission)
--- NOTE | 2016-09-22 12:36 | DISCHARGE SUMMARY REPORT-PSYCH ---
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 He had been restarted on 1,000mg/day by Dr. Jiang on admission and agreed to increase to the previously effective dose with initial valproic acid level scheduled for 09/22/2016. Though patient described and night report confirmed he had sleep well last night he continues to be mildly pressured though not in any way incoherent or illogical; in fact, his current judgment appears to be good (and insight improving). Patient agreed to doubling daily dose of Abilify (to 5mg 2x/day) at least until the valproic acid level is in therapeutic range. Patient has been living with his girlfriend; they suffered a tragedy just 3 weeks ago when g/f had a miscarriage; we should set up a meeting with the couple prior to discharge. Patient is willing to follow up in the [place] dual focus [facility]; since he is not working at the present time he could attend either daytime or evening hours. Patient noted having some difficulties getting along with his mother ( who works for [employer]); he thinks this is contributed to by them both having similar personalities and posits that mother may have a bipolar spectrum disorder as well; patient does not appear to harbor any ill-will towards mother and would like to have a better, more positive relationship with her. Patient acknowedged that the "last straw" in his recent decompensation came when he picked up crack cocaine; 7 previous urine tox. 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 Patient was referred directly to intake with the [facility] on the day of discharge at 12:45pm. He also had been repeatedly encouraged to regularly attend local A.A./N.A. meetings and acquire and communicate frequently with a sponsor. We discussed smoking cessation once again; I stress in particular the short-term negative effects of smoking, production of carbon monoxide/ carboxyhemaglobin which robs the body's cells of needed energy; patient wants to pursue a physically active profession and energy/stamina is particularly important to him; patient agreed to continue to utilize the 21mg nicotine patch daily and was given an appointment card for the next [place] [facility] scheduled to meet on 09/27/2016 at 4pm, facilitated by Katya Soares LCSW. Patient is positive about attending [facility], upbeat, cheerful, smiling, euthymic, showing no evidence of suicidal or homicidal ideation, plans, intent or impulses and well aware of his own safety plan should he ever in future come to believe himself at acute risk of self-harm or harming others. 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 Dose of Abilify did not require adjustment during this admission. Patient requested to remain on the regular doses of Neurontin, telling me that they do seem to help him with low level anxiety without daytime sedation. Discharge HBIPS - Tobacco Use Treatment Offered Post DC Medications Offered: Script Given-See Med List Post DC Tobacco Treatment Plan: [facility] (first group 09/27/2016 at 4pm) - EtOH/Drug Use D/O Treatment Offered Post DC Medications Offered: NA-No EtOH/Drug Use D/O Post DC EtOH/SubAbuse TX Plan: NA-No EtOH/Drug Use D/O Metabolic Screening - Screen if on a Neuroleptic Medication - Metabolic screening should include: - Blood Pressure, BMI, Glucose or Hgb A1c, & a - Lipid profile from within the past 365 days. Metabolic Screening () Not Applicable, patient not on a neuroleptic. OR ([x]) Patient on a neuroleptic(s) . Enter below results for Glucose or Hemoglobin A1C, and lipid panel if obtained during the last 365 days. BMI: 25.000 Blood Pressure: 121/69 Laboratory Results (If applicable): [x] glucose = Discharge Instructions General Discharge Information Discharge Medications: I called into [facility] on [address], [place], [place] on day of discharge, 09/22/2016: Depakote ER, 500mg: iii(3) tabs every evening (1,500mg/day); #42, no refill ( mood stabilization); serum valproic acid level in AM 09/21/2016 was up to 89.7mcg/ ml which is optimal and has been well-tolerated to date; would repeat level in 1 -2 weeks to be certain steady state in therapeutic range Abilify, 10mg: i tab nightly at HS (10mg/night); #14 with no refill (clarify thinking/stable mood) Neurontin, 400mg: i tab 3x/day i tab PRN (discomfort/anxiety/jitteriness) (patient is currently prescribed 1,200-1,600mg of Neurontin daily) nicotine patch, 21mg: apply one daily, on 8am/off 8pm; #14 with no refill ( smoking cessation) (patient was also given an appointment card for the next scheduled [facility] on 09/27/2016 at 4pm, facilitated by Katya Soares LCSW)
== END 2016-09-22 12:25 | DRG 753 ==
LOC: ERH 03:22 → ERHI 10:40 → CP SOUTH 10:40 → ENTRNSPT 13:29 → EDTRNSPTSTS 13:37 → CP SOUTH 13:46 → CMPTRNSPT 13:46 → ENRESERV 23:59 → CP SOUTH 09-20 10:10 → EDPENDDISDT 09-22 13:30 → EDPENDDISTM 09-22 13:30
PROVIDERS: Emergency Medicine; ADMIT Psychiatry & Neurology Addiction Medicine
DX: F31.60 Bipolar disorder, current episode mixed, unspecified (principal); F14.90 Cocaine use, unspecified, uncomplicated; F12.90 Cannabis use, unspecified, uncomplicated; F11.21 Opioid dependence, in remission
CPT/HCPCS: 36415; 80307; 81003; 87389; 90834; G0463; G0480; J0401